=== PATIENT | male | born 1985 | race Asian ===

== ENCOUNTER 2025-06-04 13:46 | Outpatient (REF) | payer OTHER, SELFPAY ==
[2025-06-04 18:29] LABS: MANUAL DIFF FLAG NO
[2025-06-04 18:48] LABS: Appearance Urine Clear; Glucose Urine UA Negative (Negative); PH 7.5 (5.0-9.0); Specific Gravity - Urine 1.015 (1.005-1.025)
[2025-06-04 18:49] LABS: Hematocrit 42.7 % (42.0-52.0); Hemoglobin 13.9 g/dl (14.0-18.0); Imm Gran Abs Auto 0.01 X10*3/uL (0.00-0.03); Imm Gran Pct Auto 0.2 % (0.0-0.4); Lymphocytes Absolute Auto 2.3 X10*3/uL (1.2-4.9); Mean Corpuscular HGB Conc 32.6 g/dl (31.0-36.0); Mean Corpuscular Hemoglobin 27.2 pg (27.0-33.0); Mean Corpuscular Volume 83.6 fL (80.0-98.0); NRBC Abs Auto 0.000 X10*3/uL (0.0-0.012); NRBC Pct Auto 0.0 /100WBC (0.0-0.2); Platelet Count 282 X10*3/uL (160-400); Red Blood Count 5.11 X10*6/uL (4.60-5.80); White Blood Count 5.8 X10*3/uL (4.8-10.8)
[2025-06-04 19:14] LABS: Alanine Aminotransferase 27 U/L (0-40); Albumin Level 4.8 g/dL (3.5-5.0); Alkaline Phosphatase 139 U/L (39-117); Anion Gap 12 (12-20); Aspartate Amino Transferase 36 U/L (5-37); Blood Urea Nitrogen 15 mg/dL (9-16); Calcium 9.4 mg/dL (8.4-10.2); Carbon Dioxide 26 mmol/L (22-29); Chloride 107 mmol/L (96-108); Cholesterol 230 mg/dL (<200); Estimated Glomerular Filt Rate > 60; HDL Cholesterol 45 mg/dL (>40); Magnesium 2.2 mg/dL (1.6-2.6); Potassium 4.2 mmol/L (3.3-5.1); Sodium 141 mmol/L (135-145); Total Protein 8.6 g/dL (6.5-8.0); Triglycerides 222 mg/dL (<150)
[2025-06-04 19:33] LABS: Folate 9.2 ng/mL (> or = 4.0); Vitamin B12 232 pg/mL (200-900)
[2025-06-05 07:38] LABS: Syphilis Screen Nonreactive (Nonreactive)
[2025-06-05 07:56] LABS: HBS Num1 0.00 mIU/mL (0-7.99); HBsAGNum1 0.50 S/CO (0.00-0.99); HIV Num 1 0.06 S/CO (0.00-0.99); Hepatitis B Surface Antigen Negative (Negative); ~HepC Num1 0.12 S/CO (0.00-0.79); ~Hepatitis B Surface Antibody NONREACTIVE (Nonreactive); ~Hepatitis C Antibody Nonreactive (Nonreactive)
[2025-06-08 08:14] LABS: Vitamin D 25-OH, D2 <4 ng/mL; Vitamin D 25-OH, D3 15 ng/mL; Vitamin D 25-OH, Total 15 ng/mL (30-100)
== END 2025-06-04 13:47 | disposition home or self-care (01) ==
LOC: HO.HKASLDS 13:46
PROVIDERS: PCP Student in an Organized Health Care Education/Training Program; Visit Provider Student in an Organized Health Care Education/Training Program
DX: R04.0 Epistaxis (principal); R10.32 Left lower quadrant pain; R53.83 Other fatigue; R06.83 Snoring; J30.9 Allergic rhinitis, unspecified; R19.5 Other fecal abnormalities; R19.4 Change in bowel habit
CPT/HCPCS: 36415; 80053; 80061; 81003; 82306; 82607; 82746; 83036; 83735; 84443; 85025; 86706; 86780; 86803; 87340; 87389; 96127; 99202

== ENCOUNTER 2025-06-04 13:46 | Outpatient (AMB) | payer OTHER, SELFPAY ==
--- NOTE | 2025-06-04 13:49 | MHC.PC.OV ---
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 Speech And Language Specialist Required: No Accompanied by: Self / Same As Patient Allergies No Known Allergies Allergy (Verified 06/04/25 13:54) Medication List - Last Reconciled 06/05/25 by Jay Jay Dent MD azelastine 2 sprays intranasal BID Tobacco use date assessed: 06/04/25 Dental Screening Dental Screen Date: 06/04/25 Did you have a dental visit in the last 12 months?: Yes Did you have a dental problem in the last 6 months where you did not have access to dental care?: No Was dental information given to patient?: Patient has dentist HPI HPI Comments History of Present Illness Details History of Present Illness The patient is a 39 year old male presenting to establish care and for evaluation of chronic epistaxis, abdominal pain, and abnormal stools. Epistaxis: The patient reports a long-standing history of daily nosebleeds, which occur irrespective of the season. He notes that his mucus is mixed with blood, is sometimes yellow, and that blood also comes from his throat. Approximately three years ago, he underwent a nasal endoscopy for this issue, and a throat scan was recommended, but he did not follow up due to travel and a lapse in insurance coverage. Left Lower Quadrant Abdominal Pain: The patient reports the onset of left-sided abdominal pain approximately three weeks ago. He describes the pain as a stabbing sensation that is severe enough to interfere with his sleep. He has not taken any medication for the pain. Change in Bowel Habits: The patient reports that his stools are not normal, describing them as often thin, not solid, and containing what appears to be undigested food. He notes a history of similar stool problems many years ago. He denies weight loss but has not been able to gain weight despite eating a lot. Fatigue and Snoring: The patient reports sleeping a lot and having difficulty staying awake during the day. He wakes up feeling tired and has been told that he snores. He denies episodes of waking up gasping for air or choking. Surgical History: - No prior surgeries reported. Medications: - The patient reports he is not taking any medications. Social History: - Employment: The patient works at a [employer]. - Substance Use: Denies smoking, alcohol consumption, and illicit drug use. Family History: - The patient's grandmother had an unspecified type of cancer. - He reports other close relatives, including a grandfather and an aunt, from unknown causes. Past Medical History - No known chronic medical conditions reported. - No prior hospitalizations reported. - He underwent a nasal endoscopy approximately 3 years ago for evaluation of epistaxis. Health Maintenance - The patient is a 39-year-old male establishing care. - It was noted that age-appropriate cancer screenings such as colonoscopy are not yet indicated. - A comprehensive baseline lab panel was ordered, including a complete blood count, comprehensive metabolic panel, thyroid function, B12, folate, vitamin D, hemoglobin A1c, lipids, and screening for Hepatitis B, Hepatitis C, HIV, and syphilis. [facility] Surgical History (Updated 06/04/25 @ 13:55 by Javier Boyd CMA) No pertinent past surgical history Social History (Updated 06/04/25 @ 13:56 by Javier Boyd CMA) Housing: Apartment Alcohol intake: never Patient Tobacco Use Status: Never used Tobacco e-Cigarette/Vaping Use: Never Used Second Hand Smoke Exposure: No service: No Current occupational status: employed Current occupation: Works at the [employer] Current occupational exposures/hazards: No Cognitive needs: No Hearing needs: No Vision needs: No Questionnaire PHQ-9 Over the last 2 weeks, how often have you been bothered by any of the following problems? 1. Little interest or pleasure in doing things: several days 2. Feeling down, depressed, or hopeless: several days 3. Trouble falling or staying asleep, or sleeping too much: nearly every day 4. Feeling tired or having little energy: nearly every day 5. Poor appetite or overeating: more than half the days 6. Feeling bad about yourself - or that you are a failure or have let yourself or your family down: several days 7. Trouble concentrating on things, such as reading the newspaper or watching television: several days 8. Moving or speaking so slowly that other people could have noticed. Or the opposite - being so fidgety or restless that you have been moving around a lot more than usual: several days 9. Thoughts that you would be better off or of hurting yourself in some way: not at all Total score: 13 Depression Screening Interpretation: Positive Depression Screening Follow-up: Follow-up Visit Requested Depression Screening Done: Yes 39036 - PHQ-9 Billing: Yes Source: Developed by Drs. Raman Manuel, Valeria Herrera, Darryl Pickard and colleagues, with an educational vadim from [employer]. Thrive Questionnaire Date Thrive assessed: 06/04/25 I am a: Patient What is your living situation today?: I have a steady place to live Within the past 12 months, did the food you bought not last and you didn't have the money to get more?: Never true Within the past 12 months, did you worry whether your food would run out before you got money to buy more?: Never true Do you have trouble paying for medicines?: No Do you have trouble getting transportation to medical appointments?: No Do you have trouble paying your heating and electricity bill?: No Do you have trouble taking care of your child, family member or friend?: No Do you have trouble with day-to-day activities such as bathing, preparing meals, shopping, managing finances, etc.?: No Are you currently unemployed and looking for a job?: No Are you interested in more education?: Yes Please select the resources that you would like help with: None Currently or been in a relationship where the following occur: No concerns reported THRIVE Score: 0 AUDIT C Alcohol Use Questionnaire (AUDIT-C) 1. How often do you have a drink containing alcohol?: Never 2. How many drinks containing alcohol do you have on a typical day when you are drinking?: 1 or 2 3. How often do you have six or more drinks on one occasion?: Never Total Score: 0 GINO-7 AMB Questionnaire GINO-7 Date GINO - 7 assessed: 06/04/25 Feeling nervous, anxious, or on edge: 0 = Not at all Not being able to stop or control worryin = Not at all Worrying too much about different things: 1 = Several days Trouble relaxin = Several days Being so restless that it is hard to sit still: 0 = Not at all Becoming easily annoyed or irritable: 0 = Not at all Feeling afraid as if something awful might happen: 1 = Several days Total GINO-7 score (0-4 normal; 5-9 mild; 10-14 moderate; 15-21 severe): 3 Source: Developed by Drs. Raman Manuel, Valeria Herrera, Darryl Pickard and colleagues, with an educational vadim from [employer]. GINO-7 Assessment Billing GINO-7 Assessment Tool: GINO-7 Assessment 48891 Review of Systems Narrative Review of Systems - Constitutional: Reports significant fatigue, sleeping a lot, and inability to gain weight. Denies weight loss. - HEENT: Reports daily epistaxis with blood mixed in mucus, as well as blood coming from the throat. Reports occasional sore throat. - Respiratory: Reports snoring. Denies waking up gasping for air or choking. - Gastrointestinal: Reports stabbing pain in the left lower abdomen for three weeks. Reports abnormal stools, described as thin, not solid, with undigested food. Denies diarrhea or constipation. - Integumentary: Reports dry skin. - Musculoskeletal: Denies leg swelling. 10-point ROS reviewed and negative except as noted in HPI Physical exam (Primary Care) Vital Signs: Last Vital Signs Temp 98.2 F 06/04/25 13:56 Pulse 94 06/04/25 13:56 Resp 18 06/04/25 13:56 BP 135/74 06/04/25 13:56 Pulse Ox 99 06/04/25 13:56 Oxygen Delivery Method Room Air 06/04/25 13:56 BMI result Body Mass Index 23.7 Tobacco/Smoking Status: Tobacco use Status Tobacco use date assessed 06/04/25 06/04/25 13:59 Patient Tobacco Use Status Never used Tobacco 06/04/25 13:59 e-Cigarette/Vaping Use Never Used 06/04/25 13:59 PHQ-9: PHQ-9 Score PHQ-9: Total score 13 06/04/25 14:16 Depression Screening Interpretation: Positive Depression Screening Follow-up: Follow-up Visit Requested Thrive Assessment: Date of Thrive Assessment Date Thrive assessed 06/04/25 06/04/25 13:51 Currently or been in a relationship where the following occur: No concerns reported Narrative Physical Exam General: Well-appearing, in no acute distress. Vital signs: Within normal limits. HEENT: Normocephalic, atraumatic. PERRLA, EOMI. Conjunctiva clear, sclera anicteric. Oropharynx clear, mucous membranes moist. TMs intact bilaterally. Nasal mucosa appears red, suggestive of allergies. Neck: Supple, no lymphadenopathy, no thyromegaly, no JVD or carotid bruits. Cardiovascular: RRR, normal S1/S2, no murmurs, rubs, or gallops. Peripheral pulses 2+ and symmetric. No edema. Respiratory: Lungs clear to auscultation bilaterally, no wheezes, rales, or rhonchi. Normal effort. Abdomen: Soft, non-tender, non-distended. Normoactive bowel sounds. No hepatosplenomegaly, no masses. Pain noted in the lower left quadrant. MSK: Full range of motion, no joint swelling or deformity. Normal gait. Skin: Warm, dry, intact. No rashes, lesions, or pallor. Neuro: Alert and oriented x3. Cranial nerves II-XII intact. Strength 5/5 throughout. Sensation intact. Reflexes 2+ symmetric. Normal coordination and gait. Psych: Appropriate mood and affect. Normal judgment and insight. Results AMB Hemoglobin A1c AMB Hemoglobin A1c 5.2 % Last Edit by Javier Boyd CMA on 06/04/25 14:14 Results Reviewed Results Reviewed: Laboratory Last Values Hgb A1c (Clinic) 5.2 % (4.0-6.0) 06/04/25 14:01 Coding Level of Care Code New Pt Level 4 (36402) Add On Problem Visit Only Diagnoses Allergic rhinitis J30.9 Abnormal stools R19.5 Left sided abdominal pain R10.9 Epistaxis R04.0 Change in bowel habits R19.4 Fatigue R53.83 Snoring R06.83 Additional Codes GINO-7 Assessment Billing - GINO-7 Assessment Tool: GINO-7 Assessment 95538 ([id number]) PHQ-9 - 38401 - PHQ-9 Billing: Yes ([id number]) Assessment & Plan Assessment & Plan (1) Allergic rhinitis: Code(s): J30.9 - Allergic rhinitis, unspecified Category: Medical (2) Abnormal stools: Code(s): R19.5 - Other fecal abnormalities Category: Medical (3) Left sided abdominal pain: Code(s): R10.9 - Unspecified abdominal pain Category: Medical (4) Epistaxis: Code(s): R04.0 - Epistaxis Category: Medical (5) Change in bowel habits: Code(s): R19.4 - Change in bowel habit Category: Medical (6) Fatigue: Code(s): R53.83 - Other fatigue Category: Medical (7) Snoring: Code(s): R06.83 - Snoring Category: Medical Plan Consent The plan for a comprehensive baseline workup, including laboratory tests and a CT scan of the abdomen, was discussed with the patient. The rationale for this testing is to get an overall view of his health, investigate the cause of his abdominal pain and abnormal stools, and guide further referrals to specialists such as gastroenterology and ENT. The patient appeared to understand and agreed to the proposed plan. Patient was informed and verbally consented to the use of an ambient scribe for clinic note documentation during this visit. Plan 1. Epistaxis And Rhinorrhea - Prescribed a nasal spray to be used twice daily to manage mucus and bleeding. - A referral to an ENT specialist will be considered pending review of baseline labs and prior medical records. 2. Left Lower Quadrant Abdominal Pain And Change In Bowel Habits - Ordered a CT scan of the abdomen with IV contrast to investigate the etiology of his symptoms. - Plan to refer to Gastroenterology for further evaluation. 3. Fatigue And Snoring - Ordered an at-home sleep study to evaluate for possible sleep-disordered breathing. 4. Health Maintenance/New Patient Visit - Ordered comprehensive baseline laboratory studies. - Will obtain prior medical records from [facility] and other facilities for a complete review of his history. - Scheduled a follow-up visit in two weeks to review all results and records and coordinate further care. Discussion Notes I discussed with the patient that we will begin with a comprehensive workup to establish a baseline of his health. This includes extensive blood work to check his organ function, blood counts, vitamin levels, and to screen for various infections. Regarding his chronic nosebleeds, I prescribed a nasal spray to be used twice daily and explained that we may need a referral to an ENT specialist after reviewing his history. For the new onset of left-sided abdominal pain and abnormal stools, I explained the need for a CT scan to investigate the underlying cause, noting that a referral to a handicapped teacher will likely be necessary. Given his symptoms of excessive sleepiness and snoring, I recommended an at-home sleep study to evaluate for sleep apnea. I emphasized the importance of obtaining his past medical records to get a full clinical picture, and we will review all findings at a follow-up visit in two weeks. Patient Instructions - Use the prescribed nasal spray two times each day for your nosebleeds and mucus. - Please go to the lab to have the ordered blood tests done. - You need to get a CT scan of your abdomen. You can have this done at [facility] or [facility]. - You will be set up with an at-home sleep study to check for sleep problems. - Please sign the release forms at the lead front end developer so we can get your medical records from your previous doctors. - We will see you back in the office in two weeks to go over all of your results. Medical Decision Making The patient is a 39-year-old male establishing care, presenting with several concerning symptoms requiring a multi-faceted diagnostic approach. His new onset of stabbing left lower quadrant abdominal pain, coupled with a change in stool caliber and undigested food, raises suspicion for an intra-abdominal process such as diverticulitis or other colonic pathology; therefore, a CT of the abdomen is warranted for initial evaluation. A subsequent referral to gastroenterology is planned for further assessment. The patient's chronic daily epistaxis, reportedly from both the nose and throat, requires investigation beyond allergic rhinitis, despite erythematous mucosa on exam. An ENT evaluation will be crucial, but will be guided by the results of the initial workup and review of past records from a prior nasal endoscopy. His significant fatigue, excessive daytime sleepiness, and snoring are highly suggestive of obstructive sleep apnea. An at-home sleep study is an appropriate and efficient next step for diagnosis. A comprehensive lab panel serves to establish a health baseline and screen for other potential contributors to his symptoms. The plan is to consolidate all diagnostic data and formulate a definitive management plan at the two-week follow-up. Total Time Statement 30 min Total time spent caring for the patient today includes pre-visit chart review, documentation, review of laboratory and diagnostic imaging results, medication reconciliation, medically necessary evaluation, counseling on diagnoses, care coordination, ordering appropriate tests and medications, review of tests performed by other providers, reporting test results to the patient, and communication with other healthcare providers. Orders: Orders Hepatitis B Surface Antigen 06/04/25 Z13.9 - Encounter for screening, unspecified Hepatitis C Antibody 06/04/25 Z13.9 - Encounter for screening, unspecified HIV Ab/Ag 06/04/25 Z13.9 - Encounter for screening, unspecified UA CC w/rflx Micro + Cult 06/04/25 Z13.9 - Encounter for screening, unspecified Hemoglobin A1c 06/04/25 Z13.9 - Encounter for screening, unspecified Magnesium 06/04/25 Z13.9 - Encounter for screening, unspecified Hepatitis B Surface Antibody 06/04/25 Z13.9 - Encounter for screening, unspecified CT abdomen pelvis wo/w IV con 06/04/25 R10.9 - Unspecified abdominal pain, R19.5 - Other fecal abnormalities AMB Hemoglobin A1c 06/04/25 Z13.9 - Encounter for screening, unspecified Complete Blood Count Auto Diff 06/04/25 Z13.9 - Encounter for screening, unspecified Syphilis Screen 06/04/25 Z13.9 - Encounter for screening, unspecified Comprehensive Met. Panel 06/04/25 Z13.9 - Encounter for screening, unspecified TSH reflex Free T4 06/04/25 Z13.9 - Encounter for screening, unspecified Lipid Panel 06/04/25 Z13.9 - Encounter for screening, unspecified Vitamin B12 and Folate 06/04/25 Z13.9 - Encounter for screening, unspecified Vitamin D 25-OH (D2 and D3) 06/04/25 Z13.9 - Encounter for screening, unspecified Medications: New azelastine administer into each nostril 2 sprays intranasal BID 30 mL 0RF J30.9 - Allergic rhinitis, unspecified
[2025-06-04 13:56] VITALS: BP 135/74; PULSE 94; RESP 18; TEMP 36.8; O2SAT 99; BMI 23.7
== END 2025-06-04 14:32 | disposition home or self-care (01) ==
LOC: HO.HMCFMS 13:46
PROVIDERS: Visit Provider Student in an Organized Health Care Education/Training Program
DX: Z13.9 Encounter for screening, unspecified (principal)